=== PATIENT | female | born 1960 | race Hispanic/Latino ===

== ENCOUNTER 2016-08-28 13:12 | Emergency (ER) | payer BC ==
[2016-08-28 13:55] VITALS: BP 152/96; PULSE 80; RESP 18; TEMP 98.1; O2SAT 99
--- NOTE | 2016-08-28 15:20 | ED PDOC ---
HPI: Dental Pain/Injury Time Seen by Provider: 08/28/16 14:20 Chief Complaint (Nursing): Dental Pain Chief Complaint (Provider): Referral from dentist/ Facial Swelling History Per: Patient History/Exam Limitations: no limitations Onset/Duration Of Symptoms: Days (4) Current Symptoms Are (Timing): Still Present Additional Complaint(s): Chelo Hui is a 56 y/o female presenting to the ER on 08/28/2016 after being referred from her dentist for possible IV antibiotics. Patient notes she had a root canal done on right upper tooth four days ago and was prescribed 150 mg Clindamycin TID. The following day she developed swelling to right side of face. She applied warm compress and took ibuprofen without relief. She was seen by dentist today who prescribed her Clindamycin 300 mg TID and was told to come to ED for possible IV antibiotics. She denies trauma, fever, chills, or tooth pain. Patient reports her last dosage of Ibuprofen was at 10:00 AM today Past Medical History Reviewed: Historical Data, Nursing Documentation, Vital Signs Vital Signs: Last Vital Signs Temp 98.1 F 08/28/16 13:50 Pulse 80 08/28/16 13:50 Resp 18 08/28/16 13:50 BP 152/96 H 08/28/16 13:50 Pulse Ox 99 08/28/16 13:50 - Medical History PMH: No Chronic Diseases - Surgical History Surgical History: No Surg Hx - Family History Family History: States: Unknown Family Hx - Social History Current smoker - smoking cessation education provided: No Alcohol: None Drugs: Denies - Allergies Allergies/Adverse Reactions: Allergies Allergy/AdvReac Type Severity Reaction Status Date / Time gentamicin Allergy ANAPHYLAXIS Verified 08/28/16 13:48 levofloxacin [From Levaquin] Allergy ANAPHYLAXIS Verified 08/28/16 13:48 moxifloxacin [From Avelox] Allergy ANAPHYLAXIS Verified 08/28/16 13:49 Penicillins Allergy ANAPHYLAXIS Verified 08/28/16 13:46 tobramycin Allergy ANAPHYLAXIS Verified 08/28/16 13:47 vancomycin Allergy ANAPHYLAXIS Verified 08/28/16 13:47 Review of Systems ROS Statement: Except As Marked, All Systems Reviewed And Found Negative Constitutional: Negative for: Fever, Chills ENT: Positive for: Other ((-) tooth pain ) Physical Exam - Reviewed Nursing Documentation Reviewed: Yes Vital Signs Reviewed: Yes - Physical Exam Appears: Positive for: Non-toxic, No Acute Distress Head Exam: Positive for: ATRAUMATIC, NORMOCEPHALIC Skin: Positive for: Normal Color. Negative for: Rash Eye Exam: Positive for: Normal appearance ENT: Positive for: Normal ENT Inspection (Minimal swelling to right maxillary area without induration or fluctuance. Minimal erythema to right maxillary gum without swelling) Neurologic/Psych: Positive for: Alert, Oriented. Negative for: Motor/Sensory Deficits - ECG O2 Sat by Pulse Oximetry: 99 Medical Decision Making Medical Decision Makin:20 Pt instructed to continue Clindamycin and to return to ED if temperature of 100.4 develops or sx worsens. Pt agrees to plans and was informed of risks of IV abx and will not take IV abx at this time. Condition is stable for discharge. Documented by Miracle Ron, acting as a scribe for Ozzy Yang PA-C All medical record entries made by the Scribe were at my direction and personally dictated by me. I have reviewed the chart and agree that the record accurately reflects my personal performance of the history, physical exam, medical decision making, and the department course for this patient. I have also personally directed, reviewed, and agree with the discharge instructions and disposition. Disposition - Clinical Impression Clinical Impression: Toothache - Patient ED Disposition Is Patient to be Admitted: No - Disposition Disposition: Routine/Home Disposition Time: 15:00 Condition: STABLE Additional Instructions: CONTINUE TAKING YOUR CLINDAMYCIN 300MG PREVIOUSLY PRESCRIBED. APPLY WARM COMPRESSES TO AREA. TAKE MOTRIN AT HOME FOR PAIN/SWELLING. RETURN TO ED IMMEDIATELY IF SYMPTOMS WORSEN OR TEMPERATURE OF 100.4 AND/OR ABOVE DEVELOPS. Instructions: Toothache (ED) Print Language: MONEGASQUE
== END 2016-08-28 15:00 | disposition home or self-care (01) ==
LOC: H.ER 13:12
DX: K08.89 Other specified disorders of teeth and supporting structures (principal); Z88.0 Allergy status to penicillin